=== PATIENT | male | born 1980 | race Caucasian/White ===

== ENCOUNTER 2020-01-18 20:53 | Emergency (ER) | payer SELFPAY ==
[2020-01-18] MEDS ORDERED: Diphtheria,Pertussis(Acell),Tetanus Vaccine 0.5 ML Syringe IM ONE (21:35)
--- NOTE | 2020-01-18 21:41 | EDM.PDOC ---
ED HPI GENERAL MEDICAL PROBLEM - General Chief Complaint: Head Injury Stated Complaint: HEAD INJURY/WORK Time Seen by Provider: 01/18/20 21:24 Source of Information: Reports: Patient History Limitations: Reports: No Limitations - History of Present Illness INITIAL COMMENTS - FREE TEXT/NARRATIVE: 39-year-old male with no past medical history presenting for evaluation after a fall. Patient was at work when at approximately 1:50 PM, he tripped and fell backwards onto the ground, striking the back of his head on a gravel surface. He did not lose consciousness. There is no report of any posttraumatic altered mental status or seizure activity. He was able to get up and resume his normal work activities afterwards. He noted some abrasions to his back from the gravel and experienced a mild headache, so he came to the ER for evaluation. Here in the ER, he complains of a mild headache, rated as 3 out of 10 located to the back of the head. He denies any nausea, vomiting, or vision changes. Denies any facial or extremity weakness or gait changes. He is not on any anticoagulant or antiplatelet medications. Denies any drainage from the nose or ears. Denies any neck pain or any pain anywhere else. Tetanus immunization is not up-to-date. Past medical history: Reviewed, no additional pertinent history. Surgical history: Reviewed in system, no additional pertinent history. Social history: Reviewed in system, no additional pertinent history. Family history: Reviewed in system, no additional pertinent history. PHYSICAL EXAM Vital signs reviewed. Nursing notes reviewed. Constitutional: Awake, alert, non-distressed. Head: Normocephalic, superficial abrasion over the occiput. Eyes: EOMI, conjunctiva normal, no discharge, no scleral icterus. Pupils 3 mm bilaterally. Ears, Nose, Throat: External ears and nose normal, moist oral mucosa. TMs clear bilaterally. No otorrhea or rhinorrhea. No raccoons eyes or brooks sign. Neck: Supple, full range of motion. Able to flex, extend, and rotate laterally normally. Cardiovascular: 2+ radial pulse, capillary refill less than 2 seconds. Pulmonary: normal work of breathing, no accessory muscle use. Abdomen/GI: Soft, nontender, nondistended, no guarding or rigidity, no masses. Musculoskeletal: No deformities. Numerous superficial abrasions to the back from gravel injury, no evidence of retained foreign body. No repairable wounds. Integumentary: Appropriate color for ethnicity, warm, dry, no pallor or jaundice, no rash. Neurologic: Alert, answering questions appropriately, normal speech, no facial droop, moving all extremities well. Psychiatric: Appropriate mood and affect, normal thought process. Posterior Head Pain Score (Numeric/FACES): 3 - Related Data Allergies Allergy/AdvReac Type Severity Reaction Status Date / Time No Known Allergies Allergy Verified 01/18/20 21:08 Home Meds: Home Meds . [No Known Home Meds] 01/18/20 [History] Past Medical History - Past Health History Medical/Surgical History: Denies Medical/Surgical History Social & Family History - Family History Family Medical History: Noncontributory - Tobacco Use Smoking Status *Q: Never Smoker - Recreational Drug Use Recreational Drug Use: No ED ROS GENERAL - Review of Systems Review Of Systems: See Below ED EXAM, HEAD INJURY - Physical Exam Exam: See Below Course - Vital Signs Text/Narrative:: Patient hemodynamically stable, afebrile, well-appearing, looks nontoxic. Differential diagnosis includes but is not limited to: Intracranial hemorrhage, closed head injury, skull fracture, facial bone fracture, subdural hemorrhage, traumatic subarachnoid hemorrhage, soft tissue injuries, etc. Patient is well-appearing, negative by [place] CT head criteria. Mild headache. He is effectively observed himself for approximately 8 hours post injury. No clinical signs of skull fracture, no evidence of altered mental status. No focal neurologic deficits. Does have numerous superficial abrasions to the back from falling onto gravel. No evidence of retained gravel that needs to be removed. We will give a tetanus immunization booster. Well-appearing and able to discharge home without further observation, does not meet criteria for CT head imaging at this point given mild headache and otherwise well appearance. Follow-up with primary care in 1 to 2 weeks as needed with any concerns. Plan: Patient is stable to discharge home with outpatient primary care clinic follow-up. Strict emergency department return precautions were provided, patient indicated understanding. All questions were answered prior to depa rture. Discharged in good condition. Last Recorded V/S: Last Vital Signs Temp 36.4 C 01/18/20 21:01 Pulse 77 01/18/20 21:01 Resp 16 01/18/20 21:01 BP 122/75 01/18/20 21:01 Pulse Ox 97 01/18/20 21:01 - Orders/Labs/Meds Orders: Active Orders 24 hr Category Date Time Status Vaccines to be Administered [RC] PER UNIT ROUTINE Care 01/18/20 21:36 Active Meds: Medications Discontinued Medications Generic Name Dose Route Start Last Admin Trade Name Freq PRN Reason Stop Dose Admin Diphtheria/Tetanus/Acell Pertussis 0.5 ml 01/18/20 21:35 Adacel IM 01/18/20 21:36 .ONCE ONE Departure - Departure Time of Disposition: 21:40 Disposition: Home, Self-Care 01 Condition: Good Clinical Impression: Accidental fall Qualifiers: Encounter type: initial encounter Qualified Code(s): W19.XXXA - Unspecified fall, initial encounter Scalp abrasion Qualifiers: Encounter type: initial encounter Qualified Code(s): S00.01XA - Abrasion of scalp, initial encounter Back abrasion Qualifiers: Encounter type: initial encounter Laterality: unspecified laterality Qualified Code(s): S20.419A - Abrasion of unspecified back wall of thorax, initial encounter - Discharge Information *PRESCRIPTION DRUG MONITORING PROGRAM REVIEWED*: Not Applicable *COPY OF PRESCRIPTION DRUG MONITORING REPORT IN PATIENT MARLEEN: Not Applicable Instructions: Head Injury, Adult, [id number], Wound Care, Adult Referrals: [facility] - Family Practice [Provider Group] - 1 Week (As needed.) Additional Instructions: You were seen in the emergency department for evaluation after a fall. I do not believe that you need a CT scan of her head at this point given the time since the fall and how you look now. You do have some superficial abrasions to your back and your scalp, these should heal with time. I recommend applying [id number] triple antibiotic ointment. We will give you a tetanus immunization booster. You can take Tylenol or Motrin for a mild headache. If your headache worsens or if you develop any new or worsening symptoms come back to the ER right away. You can follow-up with your family doctor or primary medical clinic in 1 to 2 weeks for reevaluation if he have any persistent symptoms. Please return the emergency department immediately if your symptoms worsen or if you feel worse. Thank you for choosing the [facility] emergency department in [place] for your medical needs today. It was a pleasure caring for you. The following information is given to patients seen in the emergency department who are being discharged. This information is to outline your options for follow-up care. We provide all patients seen in our emergency department with a follow-up referral. The need for follow-up, as well as the timing and circumstances, are variable depending upon the specifics of your emergency department visit. If you don't have a primary care physician on staff, we will provide you with a referral. We always advise you to contact your personal physician following an emergency department visit to inform them of the circumstance of the visit and for follow-up with them and/or the need for any referrals to a consulting specialist. The emergency department will also refer you to a specialist when appropriate. This referral assures that you have the opportunity for follow-up care with a specialist. All of these measure are taken in an effort to provide you with optimal care, which includes your follow-up. Under all circumstances we always encourage you to contact your private physician who remains a resource for coordinating your care. When calling for follow-up care, please make the office aware that this follow-up is from your recent emergency room visit. If for any reason you are refused follow-up, please contact the [facility] Emergency Department at and asked to speak to the emergency department charge nurse. If you do not have a primary care physician that is caring for you, you can contact these clinics below to set up an appointment to establish care: [facility] - Primary Care [address] [place] [address] [id number] [address] [address] Sepsis Event Note (ED) - Evaluation Sepsis Screening Result: No Definite Risk - Focused Exam Vital Signs: Vital Signs Temp Pulse Resp BP Pulse Ox 01/18/20 21:01 36.4 C 77 16 122/75 97 - My Orders Last 24 Hours: My Active Orders 01/18/20 21:36 Vaccines to be Administered [RC] PER UNIT ROUTINE - Assessment/Plan Last 24 Hours: My Active Orders 01/18/20 21:36 Vaccines to be Administered [RC] PER UNIT ROUTINE
== END 2020-01-18 21:50 | disposition home or self-care (01) ==
LOC: MW.ED 20:53
DX: S00.01XA Abrasion of scalp, initial encounter (principal); S20.419A Abrasion of unspecified back wall of thorax, initial encounter; Z23 Encounter for immunization; W01.10XA Fall on same level from slipping, tripping and stumbling with subsequent striking against unspecified object, initial encounter
CPT/HCPCS: 90471; 90715; 99283; 99283-25